=== PATIENT | female | born 1995 | race Caucasian/White ===

== ENCOUNTER 2017-08-31 19:23 | Emergency (ER) | payer OTHER ==
[~2017-08-31] VITALS: Ht 162.5 cm; Wt 83.0 kg
[~2017-08-31 19:23] MED LIST: AMOXICILLIN500 M2 PO; AMOXICILLIN500 MG PO; FIORICET 325 MG1 TAB PO; IBU-6600 MG PO; MOTRIN800 MG PO; NKHM; NORCO 5-325 TA1 EACH PO; PREDNICOT20 MG PO; PROAIR HFA0.09 MG/AC IH; PROVERA5 MG PO; SOMA250 MG PO; ZITHROMAX Z PA250 MG PO; ZYRTEC10 M2 PO
[2017-08-31 20:15] LABS: BASO % 0.3 % (0.0-1.0); EOS # 0.1 10*3/uL (0.0-0.4); EOS % 0.8 % (1.0-4.0); HEMATOCRIT 45.3 % (37.0-47.0); HEMOGLOBIN 14.8 g/dl (12.0-16.0); LYMPH # 3.9 10*3/uL (1.3-4.4); LYMPH % 29.7 % (27.0-41.0); MEAN CELL VOLUME 90.2 fl (81.0-99.0); MEAN CORPUSCULAR HGB 29.5 pg (27.0-31.0); MEAN CORPUSCULAR HGB CONC 32.7 g/dl (33.0-37.0); MEAN PLATELET VOLUME 9.9 fl (9.6-12.3); MONO # 0.9 10*3/uL (0.1-1.0); MONO % 6.8 % (3.0-9.0); NEUT # 8.1 10*3/uL (2.3-7.9); NEUT % 62.1 % (47.0-73.0); PLATELET COUNT AUTOMATED 247 10*3/uL (130-400); RED BLOOD COUNT 5.02 10*6/uL (4.10-5.10); RED CELL DISTRI WIDTH 13.7 % (0-14.5)
[2017-08-31 20:22] LABS: BILIRUBIN NEGATIVE (NEGATIVE); BLOOD 3+ (NEGATIVE); CLARITY SL CLOUDY (CLEAR); COLOR YELLOW (YELLOW); GLUCOSE NEGATIVE (NEGATIVE); KETONE NEGATIVE (NEGATIVE); LEUKO ESTERASE 3+ (NEGATIVE); NITRITE NEGATIVE (NEGATIVE); SPECIFIC GRAVITY 1.015 (1.005-1.030); UROBILINOGEN 0.2 E.U./dl (0.2-1.0)
[2017-08-31 20:30] LABS: ALBUMIN 3.6 gm/dl (3.1-4.5); ALKALINE PHOSPHATASE 88 U/L (45-117); BUN 11 mg/dl (7-24); CHLORIDE 107 mmol/L (98-107); CREATININE 0.84 mg/dL (0.55-1.02); SGOT/AST 14 IU/L (3-35); SGPT/ALT 21 U/L (12-78); SODIUM 139 mmol/L (136-145); TOTAL PROTEIN 7.4 gm/dL (6.4-8.2)
[2017-08-31 20:32] LABS: BACTERIA 1+; EPITHELIAL CELLS 50-55; WBC TNTC wbc/hpf (0-5)
[2017-08-31] MEDS ORDERED: CIPRO500 MG PO (23:12)
[2017-08-31] MEDS ORDERED: ZOFRAN ODT4 MG SL (23:12)
[2017-08-31] MEDS ORDERED: COLACE100 MG PO (23:12)
== END 2017-08-31 23:19 | disposition home or self-care (01) ==
LOC: ED 19:23
PROVIDERS: Emergency Medicine
DX: G89.18 Other acute postprocedural pain (principal); N39.0 Urinary tract infection, site not specified; R31.9 Hematuria, unspecified; H53.8 Other visual disturbances; Z90.49 Acquired absence of other specified parts of digestive tract; Z91.018 Allergy to other foods

== ENCOUNTER 2017-12-29 02:03 | Emergency (ER) | payer OTHER ==
[~2017-12-29] VITALS: Ht 162.5 cm; Wt 81.6 kg
[~2017-12-29 02:03] MED LIST changes: +CIPRO500 MG PO; +COLACE100 MG PO; +ZOFRAN ODT4 MG SL
[2017-12-29] MEDS ORDERED: KEFLEX500 M1 PO (02:38)
[2017-12-29] MEDS ORDERED: PSEUDOEPHEDRINE30 MG PO (02:38)
[2017-12-29] MEDS ORDERED: Motrin,Rufen800 MG PO (02:38)
== END 2017-12-29 02:47 | disposition home or self-care (01) ==
LOC: ED 02:03
DX: H66.91 Otitis media, unspecified, right ear (principal); H65.01 Acute serous otitis media, right ear; F17.200 Nicotine dependence, unspecified, uncomplicated; Z91.018 Allergy to other foods

== ENCOUNTER 2020-06-19 23:18 | Emergency (ER) | payer OTHER ==
[~2020-06-19] VITALS: Ht 160 cm; Wt 81.6 kg
[~2020-06-19 23:18] MED LIST changes: +KEFLEX500 M1 PO; +Motrin,Rufen800 MG PO; +PSEUDOEPHEDRINE30 MG PO
[2020-06-20] MEDS ORDERED: KEFLEX500 M1 PO (00:03)
[2020-06-20] MEDS ORDERED: SEPTDS PO (00:03)
[2020-06-20] MEDS ORDERED: Fioricet 325 MG1 TAB PO (00:07)
== END 2020-06-20 01:40 | disposition home or self-care (01) ==
LOC: ED 23:18
DX: L02.211 Cutaneous abscess of abdominal wall (principal); Z79.899 Other long term (current) drug therapy; Z91.018 Allergy to other foods

== ENCOUNTER 2022-01-14 22:17 | Emergency (ER) | payer OTHER ==
[~2022-01-14] VITALS: Ht 160 cm; Wt 99.8 kg
[~2022-01-14 22:17] MED LIST changes: +Fioricet 325 MG1 TAB PO; +SEPTDS PO
[2022-01-15] MEDS ORDERED: CYCLOBENZAPRINE10 MG PO (02:52)
== END 2022-01-15 03:08 | disposition home or self-care (01) ==
LOC: ED 22:17
DX: S29.019A Strain of muscle and tendon of unspecified wall of thorax, initial encounter (principal); S39.012A Strain of muscle, fascia and tendon of lower back, initial encounter; Z91.018 Allergy to other foods; F17.200 Nicotine dependence, unspecified, uncomplicated; Z90.49 Acquired absence of other specified parts of digestive tract; X50.9XXA Other and unspecified overexertion or strenuous movements or postures, initial encounter; Y93.89 Activity, other specified; Y92.89 Other specified places as the place of occurrence of the external cause; Y99.0 Civilian activity done for income or pay